=== PATIENT | female | born 1960 | race Caucasian/White ===

== ENCOUNTER 2020-11-23 11:21 | Emergency (ER) | payer OTHER ==
[~2020-11-23] VITALS: Ht 170.2 cm; Wt 56.8 kg
--- NOTE | 2020-11-23 12:49 | NUR ---
[employer]: PT TO ROOM FROM LOBBY
--- NOTE | 2020-11-23 12:55 | NUR ---
nauseous and dizzy. hx of similiar d/t frequent concussions. No focal deficits Ct of head and neck already resulted
[2020-11-23] MEDS ORDERED: PLEASE ENTER HEIGHT AND WEIGHT MC SCH (13:34)
[2020-11-23] MEDS ORDERED: ONDANSETRON ODT 4 MG ONE (13:43)
--- NOTE | 2020-11-23 13:46 | NUR ---
Medicated per emar for nausea at 03/08 Radiology at bedside
[2020-11-23] MEDS ORDERED: PLEASE ENTER ALLERGIES MC SCH (14:00)
[2020-11-23] MEDS ORDERED: ONDANSETRON ODT 4 MG PO ONE (14:00)
[2020-11-23 14:26] LABS: BASOPHILS % (AUTO) 0 % (0-1); EOSINOPHILS % (AUTO) 1 % (1-7); LYMPHOCYTES % (AUTO) 21 % (22-44); MEAN CORPUSCULAR HEMOGLOBIN 33.6 pg (27.0-34.8); MEAN CORPUSCULAR HGB CONC 34.5 g/dL (32.4-35.8); MEAN PLATELET VOLUME 7.1 fL (7.4-10.4); MONOCYTES % (AUTO) 5 % (2-9); NEUTROPHILS % (AUTO) 72 % (42-75); PLATELET COUNT 219 x10^3/uL (130-400); RED BLOOD COUNT 4.45 x10^6/uL (3.82-5.3); RED CELL DISTRIBUTION WIDTH 12.9 % (9.6-15.2)
[2020-11-23 14:27] LABS: MD NO
--- NOTE | 2020-11-23 14:28 | NUR ---
With reassessment-nausea relieved to 10/08. "I'm feeling much better. can i go home soon." Updated on estimated poc (awaiting lab results)
[2020-11-23 14:29] VITALS: BP 125/61
[2020-11-23 14:37] LABS: ALBUMIN 4.2 g/dL (3.4-5.0); ANION GAP 8 mmol/L (5-15); CALCIUM 9.3 mg/dL (8.5-10.1); CHLORIDE 110 mmol/L (98-107)
[2020-11-23 14:41] LABS: ALANINE AMINOTRANSFERASE 25 U/L (12-78); ALKALINE PHOSPHATASE 113 U/L (45-117); BILIRUBIN,TOTAL 0.5 mg/dL (0.2-1.0); CREATININE 0.79 mg/dL (0.55-1.02); TOTAL PROTEIN 7.7 g/dL (6.4-8.2)
--- NOTE | 2020-11-23 14:55 | NUR ---
ALL TESTING RESULTED. PLACED UP FOR RECHECK
== END 2020-11-23 15:27 | disposition home or self-care (01) ==
LOC: ED 15:20
DX: S16.1XXA Strain of muscle, fascia and tendon at neck level, initial encounter (principal); R11.2 Nausea with vomiting, unspecified; R55 Syncope and collapse; W19.XXXA Unspecified fall, initial encounter; Y93.89 Activity, other specified; Y92.098 Other place in other non-institutional residence as the place of occurrence of the external cause; Y99.8 Other external cause status
CPT/HCPCS: 36415; 70450; 71045; 72125; 80053; 85025; 93005; 99285; Q0162